=== PATIENT | male | born 1955 | race Caucasian/White ===

== ENCOUNTER 2023-06-29 22:49 | Emergency (ER) | payer OTHER ==
[~2023-06-29] VITALS: Ht 162.6 cm; Wt 99.5 kg
[2023-06-29 23:18] VITALS: BP 134/59; PULSE 92; RESP 20; TEMP 97.9; O2SAT 95
== END 2023-06-30 05:30 | disposition left against medical advice (07) ==
LOC: ER 22:50
DX: R10.9 Unspecified abdominal pain (principal); Z53.21 Procedure and treatment not carried out due to patient leaving prior to being seen by health care provider
CPT/HCPCS: 99281

== ENCOUNTER 2024-03-09 12:57 | Emergency (ER) | payer OTHER, MEDICARE ==
[~2024-03-09] VITALS: Ht 162.6 cm; Wt 95.5 kg
[2024-03-09 13:34] LABS: BASOPHILS # (AUTO) 0.1 X10'3 (0-0.2); BASOPHILS % (AUTO) 0.9 % (0-1); EOSINOPHILS # (AUTO) 0.6 X10'3 (0-0.9); EOSINOPHILS % (AUTO) 6.1 % (0-6); HEMATOCRIT 43.6 % (35.0-45.0); HEMOGLOBIN 14.6 g/dl (12.0-16.0); LYMPHOCYTES # (AUTO) 3.3 X10'3 (1.1-4.8); LYMPHOCYTES % (AUTO) 33.3 % (21-51); MEAN CORPUSCULAR HEMOGLOBIN 31.2 PG (27.0-31.0); MEAN CORPUSCULAR HGB CONC 33.5 g/dL (33.0-36.5); MEAN PLATELET VOLUME 7.5 FL (7.4-10.4); MONOCYTES # (AUTO) 0.6 X10'3 (0-0.9); MONOCYTES % (AUTO) 5.8 % (2-12); NEUTROPHILS # (AUTO) 5.3 X10'3 (1.8-7.7); NEUTROPHILS % (AUTO) 53.9 % (42-75); PLATELET COUNT 434 X10'3 (140-440); RED BLOOD COUNT 4.69 X10'6 (4.20-5.60); RED CELL DISTRIBUTION WIDTH 13.5 % (11.5-14.5); WHITE BLOOD COUNT 9.9 X10'3 (4.5-11.0)
[2024-03-09 13:41] LABS: ALANINE AMINOTRANSFERASE 23 U/L (12-78); ALBUMIN 3.9 G/DL (3.4-5.0); ALBUMIN/GLOBULIN RATIO 0.9 (1.1-1.5); ALKALINE PHOSPHATASE 131 IU/L (46-116); ANION GAP 13 (8-16); ASPARTATE AMINO TRANSFERASE 18 U/L (10-37); BILIRUBIN,TOTAL 0.4 MG/DL (0.1-1.0); BLOOD UREA NITROGEN 21 MG/DL (7-18); BUN/CREATININE RATIO 14.1 (10.0-20.0); CALCIUM 9.7 MG/DL (8.5-10.1); CHLORIDE 105 MMOL/L (99-107); CREATININE 1.49 MG/DL (0.40-0.90); GLUCOSE 129 MG/DL (70-104); POTASSIUM 3.9 MMOL/L (3.5-5.1); SODIUM 142 MMOL/L (135-145); TOTAL CARBON DIOXIDE 24.3 MMOL/L (24-32); TOTAL PROTEIN 8.2 G/DL (6.4-8.2); eCRCL 32 ML/MIN; eGFR 35 ML/MIN
[2024-03-09 13:47] LABS: PRO BRAIN NATRIURETIC PEPTIDE < 30 PG/ML (0-125)
[2024-03-09 13:48] LABS: PRO BRAIN NATRIURETIC PEPTIDE < 30 PG/ML (0-125)
[2024-03-09] MEDS: normal saline 1000ML IV soln IVB ONE (14:12)
[2024-03-09] MEDS: ondansetron/PF 4mg/2ml inj IV ONE (14:12)
[2024-03-09 17:25] VITALS: BP 129/75; PULSE 63; RESP 17; TEMP 98.3; O2SAT 95
== END 2024-03-09 17:29 | disposition home or self-care (01) ==
LOC: ER 12:57 → EDSEX 12:57 → ER 17:29
DX: R07.89 Other chest pain (principal); Z88.2 Allergy status to sulfonamides; Z88.0 Allergy status to penicillin
CPT/HCPCS: 36415; 71045; 80053; 83880; 84484; 85025; 93005; 96361; 96374; 99285; J2405; J7030

== ENCOUNTER 2024-08-04 08:58 | Emergency (ER) | payer OTHER, MEDICARE ==
[~2024-08-04] VITALS: Ht 160 cm; Wt 90.9 kg
[2024-08-04 10:20] LABS: BASOPHILS % (AUTO) 0.3 % (0-1); EOSINOPHILS # (AUTO) 0.1 X10'3 (0-0.9); EOSINOPHILS % (AUTO) 0.6 % (0-6); HEMATOCRIT 41.7 % (35.0-45.0); LYMPHOCYTES % (AUTO) 22.8 % (21-51); MEAN CORPUSCULAR HEMOGLOBIN 31.5 PG (27.0-31.0); MEAN CORPUSCULAR HGB CONC 33.6 g/dL (33.0-36.5); MEAN CORPUSCULAR VOLUME 93.8 FL (78-98); MEAN PLATELET VOLUME 7.9 FL (7.4-10.4); MONOCYTES # (AUTO) 1.3 X10'3 (0-0.9); MONOCYTES % (AUTO) 9.8 % (2-12); NEUTROPHILS # (AUTO) 8.8 X10'3 (1.8-7.7); NEUTROPHILS % (AUTO) 66.5 % (42-75); PLATELET COUNT 343 X10'3 (140-440); RED BLOOD COUNT 4.45 X10'6 (4.20-5.60); RED CELL DISTRIBUTION WIDTH 14.2 % (11.5-14.5); WHITE BLOOD COUNT 13.2 X10'3 (4.5-11.0)
[2024-08-04 10:28] LABS: ALBUMIN 3.9 G/DL (3.4-5.0); ANION GAP 12 (8-16); BLOOD UREA NITROGEN 16 MG/DL (7-18); BUN/CREATININE RATIO 16.3 (10.0-20.0); CHLORIDE 101 MMOL/L (99-107); CREATININE 0.98 MG/DL (0.40-0.90); GLUCOSE 143 MG/DL (70-104); POTASSIUM 3.6 MMOL/L (3.5-5.1); SODIUM 136 MMOL/L (135-145); TOTAL CARBON DIOXIDE 23.1 MMOL/L (24-32); eCRCL 45 ML/MIN; eGFR 56 ML/MIN
[2024-08-04 10:55] LABS: C-REACTIVE PROTEIN 5.74 MG/DL (0.0-0.5)
[2024-08-04] MEDS: ketorolac trometh 30MG/ML vial 30 MG/ML VIAL IV ONE (11:08)
[2024-08-04 11:33] LABS: BILIRUBIN,URINE NEGATIVE (Neg); CLARITY,URINE CLEAR (Clear); COLOR,URINE YELLOW (Yellow); GLUCOSE, URINE NEGATIVE (Neg); KETONES,URINE NEGATIVE (Neg); LEUKOCYTE ESTERASE ,URINE NEGATIVE (Neg); NITRITES, URINE NEGATIVE (Neg); OCCULT BLOOD,URINE NEGATIVE (Neg); PH,URINE 6.5 (4.8-8.0); PROTEIN,URINE TRACE mg/dl (Neg)
[2024-08-04 11:37] LABS: UA COLLECTION TYPE STRAIGHT CATH
[2024-08-04 11:40] LABS: AMORPHOUS PHOSPHATES 1+; BACTERIA,URINE FEW /HPF (Neg); MUCUS STRANDS MODERATE /LPF (Neg); RBC,URINE 0-2 /HPF (0-2); SQUAMOUS EPITHELIAL CELL,UR FEW /LPF (FEW); WBC,URINE 0-4 /HPF (0-4)
[2024-08-04] MEDS: LIDOcaine 1% W/epiNEPHrine 1:100,000 20ml vial SQ ONE (12:41)
[2024-08-04 14:50] LABS: APPEARANCE,SYNOVIAL FLUID CLOUDY; COLOR,SYNOVIAL FLUID YELLOW; SYN RBC 83 /CU MM (0); SYN WBC 32600 /CU MM (0-200)
[2024-08-04 14:51] LABS: LYMPHOCYTES,SYNOVIAL FLUID 2 % (0-75); MONOCYTES,SYNOVIAL FLUID 10 % (0-0); NEUTROPHILS,SYNOVIAL FLUID 88 % (0-25)
[2024-08-04] MEDS: morphine sulfate IR 15MG tablet PO PRN (17:42)
[2024-08-04 17:45] VITALS: BP 130/109; O2SAT 95
[2024-08-04 19:05] VITALS: PULSE 87; RESP 16; TEMP 98.3
== END 2024-08-04 19:14 | disposition home or self-care (01) ==
LOC: ER 08:58
DX: M17.12 Unilateral primary osteoarthritis, left knee (principal); R11.2 Nausea with vomiting, unspecified; Z88.0 Allergy status to penicillin; Z88.2 Allergy status to sulfonamides
CPT/HCPCS: 20610; 36415; 73502; 73564; 80048; 81001; 83605; 84145; 85025; 85651; 86140; 87040; 87070; 87502; 87503; 89051; 89060; 96374; 99285; J1885; J3490; A4353; A6449

== ENCOUNTER 2024-08-14 15:05 | Inpatient (IN) | payer OTHER, MEDICARE ==
[~2024-08-14] VITALS: Ht 165.1 cm; Wt 96.0 kg
[2024-08-14] MEDS: normal saline 1000ml 1,000 ML IV ONE (16:12)
[2024-08-14 16:42] LABS: BASOPHILS # (AUTO) 0.1 X10'3 (0-0.2); EOSINOPHILS # (AUTO) 0.1 X10'3 (0-0.9); EOSINOPHILS % (AUTO) 0.7 % (0-6); HEMOGLOBIN 11.8 g/dl (12.0-16.0); MEAN PLATELET VOLUME 6.5 FL (7.4-10.4)
[2024-08-14 16:44] LABS: BASOPHILS % (AUTO) 0.9 % (0-1); HEMATOCRIT 35.5 % (35.0-45.0); LYMPHOCYTES # (AUTO) 1.9 X10'3 (1.1-4.8); LYMPHOCYTES % (AUTO) 15.5 % (21-51); MEAN CORPUSCULAR HEMOGLOBIN 31.1 PG (27.0-31.0); MEAN CORPUSCULAR HGB CONC 33.2 g/dL (33.0-36.5); MEAN CORPUSCULAR VOLUME 93.8 FL (78-98); MONOCYTES # (AUTO) 1.5 X10'3 (0-0.9); MONOCYTES % (AUTO) 12.4 % (2-12); NEUTROPHILS # (AUTO) 8.7 X10'3 (1.8-7.7); NEUTROPHILS % (AUTO) 70.5 % (42-75); PLATELET COUNT 765 X10'3 (140-440); RED BLOOD COUNT 3.79 X10'6 (4.20-5.60); WHITE BLOOD COUNT 12.3 X10'3 (4.5-11.0)
[2024-08-14 17:00] LABS: ALBUMIN 2.4 G/DL (3.4-5.0); ANION GAP 11 (8-16); BLOOD UREA NITROGEN 19 MG/DL (7-18); BUN/CREATININE RATIO 19.8 (10.0-20.0); CALCIUM 9.5 MG/DL (8.5-10.1); CHLORIDE 103 MMOL/L (99-107); CREATININE 0.96 MG/DL (0.40-0.90); GLUCOSE 115 MG/DL (70-104); POTASSIUM 3.3 MMOL/L (3.5-5.1); SODIUM 139 MMOL/L (135-145); TOTAL CARBON DIOXIDE 25.2 MMOL/L (24-32); eCRCL 50 ML/MIN; eGFR 58 ML/MIN
[2024-08-14 17:14] LABS: TOTAL CELLS COUNTED 100
[2024-08-14 17:15] LABS: PLATELET ESTIMATE INCREASED
[2024-08-14] MEDS: midazolam 1 mg/ML 2ml injection IV PRN (17:36)
[2024-08-14] MEDS: HYDROcodone/acetaminophen 10/325mg tab PO ONE (17:37)
[2024-08-14] MEDS: ketorolac trometh 15mg/ml vial 15 MG/ML ML IV ONE (19:29)
[2024-08-14 19:49] LABS: C-REACTIVE PROTEIN 27.12 MG/DL (0.0-0.5)
[2024-08-14] MEDS: fentaNYL/PF 50MCG/1 ML 2ML syringe IV ONE (20:13)
[2024-08-14] MEDS: ondansetron/PF 4mg/2ml inj IV ONE (20:13)
[2024-08-14] MEDS: LIDOcaine 1% W/epiNEPHrine 1:100,000 20ml vial IJ ONE (20:50)
[2024-08-14] MEDS: morphine 4 MG/ML inj SYRINge IV ONE ×2 (20:56→23:18)
[2024-08-15 00:22] LABS: GLUCOSE,CSF 67 MG/DL (40-75); TOTAL PROTEIN,CSF 33 MG/DL (30-60)
[2024-08-15 00:34] LABS: APPEARANCE,CSF CLEAR; CSF SUPERNATANT COLOR COLORLESS; CSF VOLUME 8.5 ML; TUBE# COUNTED 4
[2024-08-15 00:38] LABS: CSF RBC 1 /CU MM (0); CSF WBC CT 1 /CU MM (0-5)
[2024-08-15 06:10] LABS: BILIRUBIN,URINE MODERATE (Neg); CLARITY,URINE CLOUDY (Clear); COLOR,URINE YELLOW (Yellow); GLUCOSE, URINE NEGATIVE (Neg); KETONES,URINE 15 mg/dl (Neg); LEUKOCYTE ESTERASE ,URINE NEGATIVE (Neg); NITRITES, URINE NEGATIVE (Neg); OCCULT BLOOD,URINE TRACE-INTACT (Neg); PROTEIN,URINE 30 mg/dl (Neg)
[2024-08-15 06:15] LABS: UA COLLECTION TYPE CLN CATCH MIDSTREAM
[2024-08-15 06:20] LABS: BACTERIA,URINE 3+ /HPF (Neg); MUCUS STRANDS MODERATE /LPF (Neg); RBC,URINE 0-2 /HPF (0-2); SQUAMOUS EPITHELIAL CELL,UR MANY /LPF (FEW)
[2024-08-15] MEDS: vancomycin inj 1,000 MG in normal saline 250ml IV soln 250 ML IV ONE (06:28)
[2024-08-15] MEDS: HYDROcodone/acetaminophen 10/325mg tab PO ONE (07:41)
[2024-08-15] MEDS: normal saline 1000ml 1,000 ML IV ONE (08:02)
[2024-08-15] MEDS: CefTRIAXone/D5W-Rocephin 1gm 50 ML IV ONE (08:03)
[2024-08-15] MEDS: midazolam 1 mg/ML 2ml injection IV ONE ×2 (09:37→10:46)
[2024-08-15] MEDS: ondansetron/PF 4mg/2ml inj IV ONE (10:46)
[2024-08-15] MEDS: fentaNYL/PF 50MCG/1 ML 2ML syringe IV ONE (10:46)
[2024-08-15] MEDS ORDERED: acetaminophen 325mg tablet PO PRN ×2 (14:55)
[2024-08-15] MEDS ORDERED: morphine 2 MG/ML inj. syringe IV PRN (14:55)
[2024-08-15] MEDS ORDERED: ondansetron/PF 4mg/2ml inj IV PRN (14:55)
[2024-08-15] MEDS ORDERED: HYDROcodone/acetaminophen 5mg/325mg tablet PO PRN (14:55)
[2024-08-15] MEDS ORDERED: mag hydrox/Alum hydrox/simeth 30ml oral suspension PO PRN (14:55)
[2024-08-15] MEDS: dextrose 5%-1/2 normal saline 1,000 ML IV SCH (15:21)
[2024-08-15] MEDS: morphine 2 MG/ML inj. syringe IV PRN (17:26)
[2024-08-15] MEDS: ringers solution, lacted 1,000 ML IV ONE (17:47)
[2024-08-15] MEDS ORDERED: LOP12.5T PO (18:43)
[2024-08-15] MEDS ORDERED: PARO-154 PO (18:44)
[2024-08-15] MEDS: vancomycin/NS 1 GM ADD-VANTAGE 250 ML IV SCH (19:06)
[2024-08-15] MEDS: HYDROcodone/acetaminophen 10/325mg tab PO PRN (19:11)
[2024-08-15] MEDS ORDERED: VANCOMYCIN 1GM 200ML H20 (PEG) 200 ML IV SCH (20:00)
[2024-08-15] MEDS: docusate sod 100mg capsule PO SCH (20:10)
[2024-08-16] VITALS (14 sets, daily range): BP systolic 143–177; BP diastolic 63–84; PULSE 75–98; RESP 12–27; TEMP 97.4–99.8; O2SAT 95–99
[2024-08-16 02:26] LABS: BASOPHILS # (AUTO) 0.1 X10'3 (0-0.2); EOSINOPHILS # (AUTO) 0.1 X10'3 (0-0.9); LYMPHOCYTES # (AUTO) 1.8 X10'3 (1.1-4.8); LYMPHOCYTES % (AUTO) 16.2 % (21-51); MONOCYTES # (AUTO) 1.5 X10'3 (0-0.9); NEUTROPHILS # (AUTO) 7.8 X10'3 (1.8-7.7); WHITE BLOOD COUNT 11.3 X10'3 (4.5-11.0)
[2024-08-16 02:30] LABS: BASOPHILS % (AUTO) 0.5 % (0-1); EOSINOPHILS % (AUTO) 0.7 % (0-6); MEAN CORPUSCULAR HEMOGLOBIN 31.3 PG (27.0-31.0); MEAN CORPUSCULAR HGB CONC 33.5 g/dL (33.0-36.5); MEAN CORPUSCULAR VOLUME 93.3 FL (78-98); MONOCYTES % (AUTO) 13.4 % (2-12); NEUTROPHILS % (AUTO) 69.2 % (42-75); PLATELET COUNT 677 X10'3 (140-440); RED BLOOD COUNT 2.89 X10'6 (4.20-5.60); RED CELL DISTRIBUTION WIDTH 14.9 % (11.5-14.5)
[2024-08-16 02:45] LABS: ALBUMIN 1.8 G/DL (3.4-5.0); ANION GAP 9 (8-16); BLOOD UREA NITROGEN 11 MG/DL (7-18); BUN/CREATININE RATIO 12.1 (10.0-20.0); CALCIUM 8.4 MG/DL (8.5-10.1); CHLORIDE 102 MMOL/L (99-107); CREATININE 0.91 MG/DL (0.40-0.90); GLUCOSE 137 MG/DL (70-104); POTASSIUM 3.1 MMOL/L (3.5-5.1); SODIUM 136 MMOL/L (135-145); TOTAL CARBON DIOXIDE 24.9 MMOL/L (24-32); eCRCL 53 ML/MIN; eGFR 61 ML/MIN
[2024-08-16 03:20] LABS: TOTAL CELLS COUNTED 100
[2024-08-16 03:21] LABS: PLATELET ESTIMATE INCREASED
[2024-08-16] MEDS: famotidine/PF 10 mg/ml inj IV ONE (06:05)
[2024-08-16] MEDS ORDERED: sevoflurane 250ml liquid IH ONE (07:54)
[2024-08-16] MEDS ORDERED: fentaNYL/PF 50MCG/1 ML 2ML syringe ONE (08:00)
[2024-08-16] MEDS: CefTRIAXone 2gm/D5W 50ml BAG 50 ML IV SCH (08:00)
[2024-08-16] MEDS ORDERED: midazolam 1 mg/ML 2ml injection ONE (08:19)
[2024-08-16] MEDS ORDERED: fentaNYL /PF 50mcg/ml 5ml ampule ONE (08:21)
[2024-08-16] MEDS ORDERED: dexamethasone sod phosphate 4mg/ml inj. ONE (08:25)
[2024-08-16] MEDS ORDERED: ondansetron/PF 4mg/2ml inj ONE (08:25)
[2024-08-16] MEDS ORDERED: LIDOcaine 2% (20mg/ml) 5ml vial ONE (08:25)
[2024-08-16] MEDS ORDERED: propofol inj 20 ML IV ONE (08:25)
[2024-08-16] MEDS ORDERED: morphine 2 MG/ML inj. syringe IV PRN (08:45)
[2024-08-16] MEDS ORDERED: ondansetron/PF 4mg/2ml inj IV PRN (08:45)
[2024-08-16] MEDS: ringers solution, lacted 1,000 ML IV SCH (08:45)
[2024-08-16] MEDS ORDERED: hydrALAZINE 20mg/ml inj. IV PRN (08:45)
[2024-08-16] MEDS ORDERED: meperidine/PF 25mg/ml syringe IV PRN (08:45)
[2024-08-16] MEDS ORDERED: morphine 4 MG/ML inj SYRINge IV PRN (08:45)
[2024-08-16] MEDS ORDERED: HYDROmorphone/PF 0.2 MG/ML SYRINGE IV PRN ×2 (08:45)
[2024-08-16] MEDS ORDERED: proCHLORperazine 10 MG/2 ml inj IV PRN (08:45)
[2024-08-16] MEDS: labetalol 20mg/4ml (5mg/ml) syringe IV PRN (09:13)
[2024-08-16] MEDS: acetaminophen 1,000mg/100ml IV 100 ML IV PRN (09:14)
[2024-08-16] MEDS: morphine 2 MG/ML inj. syringe IV ONE (12:22)
[2024-08-16] MEDS: VANCOMYCIN LEVEL IV ONE (18:30)
[2024-08-16] MEDS: metoprolol tartrate 25mg tablet PO SCH (19:39)
[2024-08-17 06:00] VITALS: BP_SYST 158; BP_DIAS 75; BP_DIAS 78; PULSE 74; PULSE 88; RESP 14; RESP 16; TEMP 97.7; TEMP 98; O2SAT 96; O2SAT 98
[2024-08-17 06:25] LABS: ALBUMIN 1.8 G/DL (3.4-5.0); ANION GAP 8 (8-16); BLOOD UREA NITROGEN 10 MG/DL (7-18); BUN/CREATININE RATIO 12.7 (10.0-20.0); CALCIUM 8.7 MG/DL (8.5-10.1); CHLORIDE 105 MMOL/L (99-107); CREATININE 0.79 MG/DL (0.40-0.90); GLUCOSE 154 MG/DL (70-104); POTASSIUM 3.5 MMOL/L (3.5-5.1); SODIUM 137 MMOL/L (135-145); TOTAL CARBON DIOXIDE 23.9 MMOL/L (24-32); eCRCL 61 ML/MIN; eGFR 72 ML/MIN
[2024-08-17] MEDS: PARoxetine 20mg tablet PO SCH (08:43)
[2024-08-17 10:00] VITALS: BP 146/42; PULSE 91; RESP 16; TEMP 97.9; O2SAT 96
[2024-08-17] MEDS: HYDROmorphone inj. 0.5 MG/0.5 ML DISP.SYRIN IV PRN (14:27)
[2024-08-17] MEDS: VANCOMYCIN/WATER FOR INJ (PEG) 1.25GM/250 ML IVPB IV SCH (15:48)
[2024-08-17] MEDS: HYDROcodone/acetaminophen 10/325mg tab PO PRN (17:19)
[2024-08-17] MEDS: JUVEN Smoothie Arginine/Glut./Ca2+Bmb (Juven 19.3pkt) 240ml cup PO SCH (17:31)
[2024-08-17 18:00] VITALS: BP 164/47; PULSE 84; RESP 18; TEMP 98.9; O2SAT 97
[2024-08-17 22:00] VITALS: BP 173/69; PULSE 85; RESP 20; TEMP 98.4; O2SAT 98
[2024-08-18 06:00] VITALS: BP 159/73; PULSE 77; RESP 14; TEMP 98.4; O2SAT 95
[2024-08-18 06:41] LABS: BASOPHILS # (AUTO) 0.1 X10'3 (0-0.2); BASOPHILS % (AUTO) 0.5 % (0-1); HEMOGLOBIN 9.3 g/dl (12.0-16.0); LYMPHOCYTES # (AUTO) 2.4 X10'3 (1.1-4.8); MONOCYTES # (AUTO) 1.4 X10'3 (0-0.9)
[2024-08-18 06:43] LABS: EOSINOPHILS # (AUTO) 0.2 X10'3 (0-0.9); EOSINOPHILS % (AUTO) 1.6 % (0-6); HEMATOCRIT 27.8 % (35.0-45.0); LYMPHOCYTES % (AUTO) 22.1 % (21-51); MEAN CORPUSCULAR HEMOGLOBIN 31.2 PG (27.0-31.0); MEAN CORPUSCULAR HGB CONC 33.4 g/dL (33.0-36.5); MEAN CORPUSCULAR VOLUME 93.4 FL (78-98); NEUTROPHILS # (AUTO) 6.9 X10'3 (1.8-7.7); NEUTROPHILS % (AUTO) 62.8 % (42-75); PLATELET COUNT 828 X10'3 (140-440); RED BLOOD COUNT 2.98 X10'6 (4.20-5.60); RED CELL DISTRIBUTION WIDTH 14.7 % (11.5-14.5)
[2024-08-18 07:28] LABS: ALBUMIN 1.9 G/DL (3.4-5.0); ANION GAP 8 (8-16); BLOOD UREA NITROGEN 13 MG/DL (7-18); BUN/CREATININE RATIO 16.3 (10.0-20.0); CALCIUM 8.5 MG/DL (8.5-10.1); CHLORIDE 107 MMOL/L (99-107); GLUCOSE 98 MG/DL (70-104); POTASSIUM 3.5 MMOL/L (3.5-5.1); SODIUM 143 MMOL/L (135-145); TOTAL CARBON DIOXIDE 27.9 MMOL/L (24-32); eCRCL 61 ML/MIN; eGFR 71 ML/MIN
[2024-08-18 07:43] LABS: HYPERSEGMENTED NEUTROPHILS FEW; PLATELET ESTIMATE INCREASED; ROULEAUX 1+; TOTAL CELLS COUNTED 100
[2024-08-18 07:44] LABS: POLYCHROMASIA FEW
[2024-08-18 08:00] VITALS: RESP 14; O2SAT 95
[2024-08-18 10:00] VITALS: BP 153/64; PULSE 74; RESP 18; TEMP 98.8; O2SAT 94
[2024-08-18] MEDS: ceFAZolin 2gm in dextrose, iso 50 ML IV SCH (16:19)
[2024-08-18 18:00] VITALS: BP 136/85; PULSE 72; RESP 14; TEMP 97.4; O2SAT 96
[2024-08-18 22:00] VITALS: BP 131/62; PULSE 71; RESP 16; TEMP 98; O2SAT 95
[2024-08-19] MEDS ORDERED: VANCOMYCIN LEVEL IV ONE (02:30)
[2024-08-19 06:00] VITALS: BP 128/59; PULSE 71; RESP 16; TEMP 97.7; O2SAT 97
[2024-08-19 06:10] LABS: BASOPHILS % (AUTO) 0.4 % (0-1); EOSINOPHILS # (AUTO) 0.2 X10'3 (0-0.9); MEAN PLATELET VOLUME 6.3 FL (7.4-10.4); NEUTROPHILS # (AUTO) 7.3 X10'3 (1.8-7.7); RED CELL DISTRIBUTION WIDTH 14.8 % (11.5-14.5)
[2024-08-19 06:12] LABS: EOSINOPHILS % (AUTO) 1.8 % (0-6); HEMATOCRIT 31.2 % (35.0-45.0); HEMOGLOBIN 10.8 g/dl (12.0-16.0); LYMPHOCYTES # (AUTO) 2.6 X10'3 (1.1-4.8); LYMPHOCYTES % (AUTO) 22.3 % (21-51); MEAN CORPUSCULAR HEMOGLOBIN 32.2 PG (27.0-31.0); MEAN CORPUSCULAR HGB CONC 34.4 g/dL (33.0-36.5); MEAN CORPUSCULAR VOLUME 93.5 FL (78-98); MONOCYTES # (AUTO) 1.6 X10'3 (0-0.9); MONOCYTES % (AUTO) 13.3 % (2-12); NEUTROPHILS % (AUTO) 62.2 % (42-75); PLATELET COUNT 895 X10'3 (140-440); RED BLOOD COUNT 3.34 X10'6 (4.20-5.60); WHITE BLOOD COUNT 11.8 X10'3 (4.5-11.0)
[2024-08-19 06:23] LABS: ALBUMIN 2.2 G/DL (3.4-5.0); ANION GAP 7 (8-16); BLOOD UREA NITROGEN 17 MG/DL (7-18); BUN/CREATININE RATIO 20.5 (10.0-20.0); CALCIUM 9.1 MG/DL (8.5-10.1); CHLORIDE 103 MMOL/L (99-107); CREATININE 0.83 MG/DL (0.40-0.90); GLUCOSE 102 MG/DL (70-104); POTASSIUM 3.5 MMOL/L (3.5-5.1); SODIUM 141 MMOL/L (135-145); TOTAL CARBON DIOXIDE 30.8 MMOL/L (24-32); eCRCL 58 ML/MIN; eGFR 68 ML/MIN
[2024-08-19] MEDS ORDERED: bisacodyl 10mg suppository rectal RC PRN (08:30)
[2024-08-19 08:50] VITALS: RESP 18
[2024-08-19] MEDS: bisacodyl 10mg suppository rectal RC STA (08:56)
[2024-08-19 10:30] VITALS: BP 130/50; PULSE 74; RESP 17; TEMP 98.1; O2SAT 97
[2024-08-19 18:00] VITALS: BP 154/64; PULSE 83; RESP 16; TEMP 97.7; O2SAT 99
[2024-08-19 22:00] VITALS: BP 139/61; PULSE 84; RESP 13; TEMP 98.3; O2SAT 95
[2024-08-20 06:00] VITALS: BP 154/75; PULSE 78; RESP 15; TEMP 97.2; O2SAT 98
[2024-08-20 06:09] LABS: BASOPHILS # (AUTO) 0.1 X10'3 (0-0.2); BASOPHILS % (AUTO) 0.7 % (0-1); EOSINOPHILS # (AUTO) 0.2 X10'3 (0-0.9); EOSINOPHILS % (AUTO) 2.4 % (0-6); HEMATOCRIT 29.3 % (35.0-45.0); HEMOGLOBIN 9.8 g/dl (12.0-16.0); LYMPHOCYTES # (AUTO) 1.8 X10'3 (1.1-4.8); LYMPHOCYTES % (AUTO) 19.9 % (21-51); MEAN CORPUSCULAR HGB CONC 33.4 g/dL (33.0-36.5); MEAN CORPUSCULAR VOLUME 92.8 FL (78-98); MEAN PLATELET VOLUME 5.9 FL (7.4-10.4); MONOCYTES # (AUTO) 1.3 X10'3 (0-0.9); MONOCYTES % (AUTO) 13.8 % (2-12); NEUTROPHILS # (AUTO) 5.9 X10'3 (1.8-7.7); NEUTROPHILS % (AUTO) 63.2 % (42-75); PLATELET COUNT 840 X10'3 (140-440); RED BLOOD COUNT 3.15 X10'6 (4.20-5.60); RED CELL DISTRIBUTION WIDTH 14.2 % (11.5-14.5); WHITE BLOOD COUNT 9.3 X10'3 (4.5-11.0)
[2024-08-20 06:50] LABS: ALBUMIN 1.9 G/DL (3.4-5.0); ANION GAP 7 (8-16); BLOOD UREA NITROGEN 13 MG/DL (7-18); BUN/CREATININE RATIO 16.7 (10.0-20.0); CALCIUM 8.9 MG/DL (8.5-10.1); CHLORIDE 103 MMOL/L (99-107); CREATININE 0.78 MG/DL (0.40-0.90); GLUCOSE 116 MG/DL (70-104); POTASSIUM 3.3 MMOL/L (3.5-5.1); SODIUM 139 MMOL/L (135-145); TOTAL CARBON DIOXIDE 29.3 MMOL/L (24-32); eCRCL 62 ML/MIN; eGFR 73 ML/MIN
[2024-08-20] MEDS ORDERED: magnesium sulf-water 4G/100mL 100 ML IV PRN (07:55)
[2024-08-20] MEDS ORDERED: potassium Cl 40MEQ/1/2NS 520ml 520 ML IV PRN (07:55)
[2024-08-20] MEDS ORDERED: magnesium sulf-water 2g/50mL 50 ML IV PRN (07:55)
[2024-08-20] MEDS ORDERED: potassium Cl 20 mEq SR tablet PO PRN (07:55)
[2024-08-20] MEDS: K and/or MAG REPLACEMENT MC SCH (08:00)
[2024-08-20 08:05] VITALS: BP 137/63; PULSE 70; RESP 18; TEMP 98.7; O2SAT 96
[2024-08-20] MEDS: potassium Cl 20 mEq SR tablet PO PRN (10:43)
[2024-08-20] MEDS: DAPTOmycin inj. 500 MG in normal saline 100ml IV soln 100 ML IV SCH (10:44)
[2024-08-20 13:49] VITALS: RESP 16
[2024-08-20 15:22] VITALS: BP 127/52; PULSE 77; RESP 16; TEMP 98.1; O2SAT 94
[2024-08-20 18:00] VITALS: BP 153/53; PULSE 84; RESP 16; TEMP 97.6; O2SAT 97
[2024-08-20] MEDS: magnesium hydroxide 30ml (MOM) UD suspension PO PRN (19:46)
[2024-08-20 22:00] VITALS: BP 129/56; PULSE 74; RESP 16; TEMP 98.6; O2SAT 95
[2024-08-21 06:00] VITALS: BP 143/62; PULSE 78; RESP 18; TEMP 97.9; O2SAT 98
[2024-08-21 06:25] LABS: MAGNESIUM 2.2 MG/DL (1.5-2.4)
[2024-08-21 08:53] LABS: ANION GAP 11 (8-16); BLOOD UREA NITROGEN 16 MG/DL (7-18); BUN/CREATININE RATIO 19.8 (10.0-20.0); CALCIUM 9.2 MG/DL (8.5-10.1); CHLORIDE 102 MMOL/L (99-107); CREATININE 0.81 MG/DL (0.40-0.90); GLUCOSE 105 MG/DL (70-104); SODIUM 138 MMOL/L (135-145); TOTAL CARBON DIOXIDE 24.8 MMOL/L (24-32); eCRCL 60 ML/MIN; eGFR 70 ML/MIN
[2024-08-21 10:00] VITALS: BP 125/56; PULSE 77; RESP 18; TEMP 98.3; O2SAT 97
[2024-08-21 10:27] VITALS: RESP 15
== END 2024-08-21 11:15 | DRG 853 ==
LOC: ER 15:06 → ED HOLD 08-15 14:59 → ORTHO 4S 08-16 09:34
PROVIDERS: ADMIT Internal Medicine; ATTEND Internal Medicine
PROC: 009U3ZX Drainage of Spinal Canal, Percutaneous Approach, Diagnostic (ICD-10-PCS; 2024-08-14)
PROC: 0S9D0ZZ Drainage of Left Knee Joint, Open Approach (ICD-10-PCS; principal; 2024-08-16 07:54)
PROC: 02HV33Z Insertion of Infusion Device into Superior Vena Cava, Percutaneous Approach (ICD-10-PCS; 2024-08-19)
PROC: 4A02X4A Measurement of Cardiac Electrical Activity, Guidance, External Approach (ICD-10-PCS; 2024-08-19)
DX: A41.9 Sepsis, unspecified organism (principal); E43 Unspecified severe protein-calorie malnutrition; M00.062 Staphylococcal arthritis, left knee; D62 Acute posthemorrhagic anemia; F32.A Depression, unspecified; M25.462 Effusion, left knee; D69.6 Thrombocytopenia, unspecified; E87.6 Hypokalemia; Z96.651 Presence of right artificial knee joint; I10 Essential (primary) hypertension; Z88.0 Allergy status to penicillin; Z88.2 Allergy status to sulfonamides; Z68.35 Body mass index [BMI] 35.0-35.9, adult; Z99.3 Dependence on wheelchair
CPT/HCPCS: 36415; 36569; 62270; 70551; 71045; 72148; 73560; 74018; 76942; 80048; 80202; 81001; 82945; 83605; 83735; 83880; 84145; 84157; 84484; 85007; 85025; 85651; 86140; 87015; 87040; 87070; 87075; 87077; 87081; 87186; 89051; 93005; 97110; 97116; 97162; 97530; 99291; A4615; A4618; A6258; A6449; A7000; C1751; G0378; J0131; J0690; J0696; J0878; J1100; J1171; J1885; J2003; J2250; J2270; J2405; J2704; J3010; J3370; J3372; J3490; J7030; J7040; J7050; J7120